=== PATIENT | male | born 1975 | race Two or more races ===

== ENCOUNTER 2024-07-05 14:07 | Inpatient (IN) | payer OTHER ==
[2024-07-05 14:20] VITALS: BMI 27.3
[2024-07-05] MEDS ORDERED: ONDANSETRON *ODT* 4 MG TABLET SL PRN (15:03)
[2024-07-05] MEDS ORDERED: POLYETHYLENE GLYCOL (HEALTHYLAX) 3350 17 GM PACKET PO PRN (15:03)
[2024-07-05] MEDS ORDERED: IBUPROFEN 400 MG TABLET (FP) PO PRN (15:03)
[2024-07-05] MEDS ORDERED: BENZOCAINE/MENTHOL (CHLORASEPTIC ) LOZENGE MM PRN (15:03)
[2024-07-05] MEDS ORDERED: BISMUTH SUBSALICYLATE 262 MG/15 ML BTL PO PRN (15:03)
[2024-07-05] MEDS ORDERED: guaiFENesin 600 MG TABLET.ER (FP) PO PRN (15:03)
[2024-07-05] MEDS ORDERED: BENZONATATE 200 MG CAPSULE PO PRN (15:03)
[2024-07-05] MEDS ORDERED: DICYCLOMINE HCL 10 MG CAPSULE PO PRN (15:03)
[2024-07-05] MEDS ORDERED: IBUPROFEN 600 MG TABLET (FP) PO PRN (15:03)
[2024-07-05] MEDS ORDERED: NALOXONE (NARCAN) HCL 4 MG/0.1 ML SPRAY NS PRN (15:03)
[2024-07-05] MEDS ORDERED: MAGNESIUM HYDROX 2400MG/30ML ORAL SUSPENSION 30 ML CUP PO PRN (15:03)
[2024-07-05] MEDS ORDERED: ACETAMINOPHEN 325 MG TABLET (FP) PO PRN (15:03)
[2024-07-05] MEDS ORDERED: hydrOXYzine PAMOATE 25 MG CAPSULE (FP) PO PRN (15:03)
[2024-07-05] MEDS ORDERED: NICOTINE POLACRILEX 2 MG LOZENGE BC PRN (15:03)
[2024-07-05] MEDS ORDERED: MAG HYDROX/AL HYDROX/SIMETH 30 ML UNIT-DOSE CUP PO PRN (15:03)
[2024-07-05] MEDS ORDERED: LOPERAMIDE HCL 2 MG CAPSULE PO PRN (15:03)
[2024-07-05] MEDS ORDERED: METHOCARBAMOL 500 MG TABLET PO PRN (15:03)
[2024-07-05] MEDS ORDERED: NICOTINE POLACRILEX 2 MG GUM BUC PRN (15:03)
[2024-07-05] MEDS: THIAMINE 100 MG TABLET PO SCH (22:28)
[2024-07-05] MEDS: MELATONIN 5 MG TABLETS PO SCH (22:28)
[2024-07-06] MEDS: PRENATAL VITAMINS W/ FOLIC ACID TABLET (FP) PO SCH (10:42)
[2024-07-06 11:15] LABS: HEMATOCRIT 48.2 % (40.1-51.0); HEMOGLOBIN 16.1 g/dL (13.7-17.5); MCHC 33.4 g/dl (32.3-36.5); MEAN CELL VOLUME 94.1 fl (79.0-92.2); MEAN PLT VOLUME 9.4 fl (9.4-12.4); PLATELET COUNT 294 x10^3/uL (163-337); RDW 12.9 % (12.1-15.9)
[2024-07-06 11:24] LABS: POTASSIUM 4.4 mmol/L (3.5-5.1)
[2024-07-06 11:37] LABS: CALCIUM 9.9 mg/dL (8.5-10.1)
[2024-07-06 11:38] LABS: BLOOD UREA NITROGEN 7.4 mg/dL (7-18)
[2024-07-06 11:39] LABS: ALBUMIN 4.6 g/dl (3.4-5.0)
[2024-07-06 11:41] LABS: CREATININE 0.8 mg/dL (0.55-1.3)
[2024-07-06 11:42] LABS: BILIRUBIN,TOTAL 0.7 mg/dL (0.2-1)
[2024-07-07 09:27] VITALS: BP 100/60; PULSE 60; RESP 17; TEMP 96.8
== END 2024-07-07 11:22 | disposition home or self-care (01) | DRG 775 ==
LOC: YASAS 14:07 → Y3N 17:26
PROVIDERS: ADMIT Allergy & Immunology; ATTEND Allergy & Immunology
PROC: HZ2ZZZZ Detoxification Services for Substance Abuse Treatment (ICD-10-PCS; principal; 2024-07-05)
DX: F10.20 Alcohol dependence, uncomplicated (principal); F17.210 Nicotine dependence, cigarettes, uncomplicated; F31.9 Bipolar disorder, unspecified; F25.9 Schizoaffective disorder, unspecified; M54.50 Low back pain, unspecified; G89.29 Other chronic pain; Z86.19 Personal history of other infectious and parasitic diseases; Z87.820 Personal history of traumatic brain injury
CPT/HCPCS: 36415; 80053; 80305; 80307; 85027; 86780; 93005; 93010